=== PATIENT | female | born 1985 | race Caucasian/White ===

== ENCOUNTER 2022-05-27 21:47 | Emergency (ER) | payer OTHER, SELFPAY ==
--- NOTE | ~2022-05-27 | XR_ITS ---
EXAMINATION: XR chest 2V DATE: 05/27/2022 22:07 INDICATION: Chest pain slightly to the left of midline TECHNIQUE: PA and lateral views of the chest were obtained. COMPARISON: Chest radiograph dated 09/14/2021 FINDINGS: The lungs are clear with no focal airspace opacities, pulmonary edema, pleural effusion or pneumothor ax. The cardiomediastinal silhouette is normal. Mild midthoracic spondylosis with mild anterior wedgi ng of a couple mid thoracic vertebral bodies. IMPRESSION: 1. No acute cardiopulmonary disease. Reviewed, dictated and finalized at location A. TESTER
--- NOTE | 2022-05-27 21:52 | ECG_ITS ---
Measurements Intervals [place] Rate: 61 P: 58 MN: 129 QRS: 55 QRSD: 79 T: 32 QT: 391 QTc: 396 Interpretive Statements SINUS RHYTHM WITH SINUS ARRHYTHMIA POSSIBLE LEFT ATRIAL ENLARGEMENT INCOMPLETE RIGHT BUNDLE BRANCH BLOCK BASELINE ARTIFACT- II, III BORDERLINE ECG NO PREVIOUS ECG AVAILABLE FOR COMPARISON Electronically Signed On 05-28-2022 16:50:20 QUALITY REP by Jose Issa D.O.
[2022-05-27 21:53] VITALS: BP 143/89; PULSE 60; PULSE 69; RESP 13; RESP 21; O2SAT 100; O2SAT 98
[2022-05-27 21:54] VITALS: PULSE 68; RESP 15; O2SAT 100
[2022-05-27] MEDS: ASPIRIN 81 MG CHEWABLE TABLET 324 MG PO (22:18)
[2022-05-27 22:19] LABS: Basophils Absolute Auto 0.1 K/mm3 (0.0-0.1); Basophils Percent Auto 0.5 % (0.2-1.2); Eosinophils Absolute Auto 0.1 K/mm3 (0-0.3); Eosinophils Percent Auto 0.8 % (0-4.4); Hematocrit 40.4 % (37.0-47.0); Hemoglobin 13.2 g/dL (12.0-15.0); Immature Granulocyte Absolute 0.04 K/mm3 (0.00-0.031); Immature Granulocyte Percent A 0.4 % (0-0.5); Lymphocytes Absolute Auto 2.54 K/mm3 (0.9-3.2); Lymphocytes Percent Auto 22.9 % (18.3-44.2); Mean Corpuscular HGB Conc 32.7 g/dl (32-36); Mean Corpuscular Hemoglobin 28.9 pg (26-34); Mean Corpuscular Volume 88.6 fl (80-100); Mean Platelet Volume 9.6 fl (7.4-10.4); Monocytes Absolute Auto 1.1 K/mm3 (0.1-0.6); Monocytes Percent Auto 9.7 % (2.6-8.5); Neutrophils Absolute Auto 7.3 K/mm3 (1.3-6.7); Neutrophils Percent Auto 65.7 % (45.5-73.1); Platelet Count Result 273 k/mm3 (150-375); Red Blood Count 4.56 M/mm3 (4.2-5.4); Red Cell Distribution Width 12.9 % (11.5-14.5); White Blood Count 11.1 K/mm3 (4.5-10.0)
[2022-05-27 22:29] LABS: Alanine Aminotransferase 30 U/L (6-35); Albumin Level 4.6 g/dL (3.5-5.1); Alkaline Phosphatase 69 U/L (38-126); Anion Gap 7 mmol/L (8-16); Aspartate Amino Transferase 41 U/L (14-36); Bilirubin,Total 0.3 mg/dL (0.2-1.3); Blood Urea Nitrogen 19 mg/dL (7-17); Calcium 9.1 mg/dL (8.4-10.2); Carbon Dioxide 28 mmol/L (22-30); Chloride 101 mmol/L (98-107); Estimated CRCL calculation 74 ml/min; Estimated Glomerular Filt Rate > 60; Glucose 110 mg/dL (65-110); Lipase 72 U/L (23-300); Potassium 3.8 mmol/L (3.4-5.0); Sodium 136 mmol/L (137-145)
[2022-05-27 22:31] VITALS: BP 117/73; PULSE 71; RESP 18; O2SAT 100
[2022-05-27 22:31] LABS: Prothrombin Time 13.1 Seconds (11.1-14.7)
[2022-05-27 22:32] LABS: Partial Thromboplastin Time 27.1 SECONDS (22.3-36.8)
[2022-05-27 22:39] LABS: Troponin I 0.013 ng/mL (0.000-0.034)
[2022-05-27 22:40] LABS: Appearance Urine Clear (Clear); Bilirubin Urine Negative (Negative); Blood Urine Negative (Negative); Color Urine Yellow (Yellow); Glucose Urine UA Negative (Negative); Ketones Urine Negative (Negative); Leukocyte Esterase Ur Negative LEU/UL (Negative); Nitrate Urine Negative (Negative); Protein Urine Negative (Negative); Urobilinogen Urine 0.2 mg/dL (<2.0); pH Urine 6.5 (5.0-9.0)
[2022-05-27 22:41] LABS: Add Urine Microscopic? NO
[2022-05-27 22:42] LABS: D Dimer 0.41 ug/mL (<0.48)
--- NOTE | 2022-05-27 22:44 | ED.GENADULT ---
HPI - General Adult General Chief complaint: Chest Pain Stated complaint: chest pain, midsternal Time Seen by Provider: 05/27/22 22:01 History of Present Illness HPI narrative: Patient is a 36-year-old female that presents emerged department with chief complaint of chest pain. The patient reports that throughout the week she has been having episodes of sharp type pain that last for a few seconds and a few episodes of stabbing patient states that then goes away and then comes back little while later. Patient denies diaphoresis denies radiation to the arm denies fever denies cough. Patient reports no prior history of connective tissue disorder reports no prior history of clotting disorder. Related Data Allergies Allergy/AdvReac Type Severity Reaction Status Date / Time No Known Allergies Allergy Verified 05/27/22 22:17 Review of Systems Review of Systems: A 10 system review of systems was completed on the patient and is negative except for what is stated in the HPI. Nursing and ancillary documentation was reviewed. Exam Narrative: GENERAL: Well-appearing, well-nourished, and in no acute distress. HEAD: Normocephalic, atraumatic. EYES: PERRLA and EOMI. ENT: Nares clear, no rhinorrhea or epistaxis. Mucous membranes moist. NECK: Supple. CHEST: Clear to auscultation. No respiratory distress. HEART: Regular rate and rhythm. No murmur heard. Normal peripheral pulses. ABDOMEN: Soft, nontender, nondistended, normal active bowel sounds. EXTREMITIES: Normal range of motion. No edema. SKIN: Warm, dry, no rash. NEURO: No focal deficits. Alert and oriented x3. PSYCH: Normal mood and affect. Course Vital Signs Vital signs: Vital Signs Pulse Rate 60 05/27/22 21:53 Respiratory Rate 21 H 05/27/22 21:53 Blood Pressure 143/89 H 05/27/22 21:53 Pulse Oximetry 100 05/27/22 21:53 Pulse Rate 60 05/27/22 21:53 Respiratory Rate 21 H 05/27/22 21:53 Blood Pressure 143/89 H 05/27/22 21:53 Pulse Oximetry 100 05/27/22 21:53 Medical Decision Making Vital Signs Vital Signs: Vital Signs Pulse Rate 60 05/27/22 21:53 Respiratory Rate 21 H 05/27/22 21:53 Blood Pressure 143/89 H 05/27/22 21:53 Pulse Oximetry 100 11/19/22 21:53 Pulse Rate 60 05/27/22 21:53 Respiratory Rate 21 H 05/27/22 21:53 Blood Pressure 143/89 H 05/27/22 21:53 Pulse Oximetry 100 05/27/22 21:53 Lab Data Result diagrams: 05/27/22 22:12 05/27/22 22:12 Labs: Lab Results 05/27/22 05/27/22 05/27/22 Range/Units 22:12 22:12 22:12 WBC 11.1 H (4.5-10.0) K/mm3 RBC 4.56 (4.2-5.4) M/mm3 Hgb 13.2 (12.0-15.0) g/dL Hct 40.4 (37.0-47.0) % MCV 88.6 (80-100) fl MCH 28.9 (26-34) pg MCHC 32.7 (32-36) g/dl RDW 12.9 (11.5-14.5) % Plt Count 273 (150-375) k/mm3 MPV 9.6 (7.4-10.4) fl Immature Gran % (Auto) 0.4 (0-0.5) % Neut % (Auto) 65.7 (45.5-73.1) % Lymph % (Auto) 22.9 (18.3-44.2) % [place] % (Auto) 9.7 H (2.6-8.5) % Eos % (Auto) 0.8 (0-4.4) % Baso % (Auto) 0.5 (0.2-1.2) % Lymph # (Auto) 2.54 (0.9-3.2) K/mm3 [place] # (Auto) 1.1 H (0.1-0.6) K/mm3 Eos # (Auto) 0.1 (0-0.3) K/mm3 Baso # (Auto) 0.1 (0.0-0.1) K/mm3 Abs Immat Gran (auto) 0.04 H (0.00-0.031) K/mm3 Absolute Neuts (auto) 7.3 H (1.3-6.7) K/mm3 Absolute Nucleated RBC 0.0 (0.0-0.012) K/mm3 Nucleated RBC % 0.0 (0.0-0.2) % PT 13.1 (11.1-14.7) Seconds INR 1.0 APTT 27.1 (22.3-36.8) SECONDS D-Dimer 0.41 (<0.48) ug/mL Sodium 136 L (137-145) mmol/L Potassium 3.8 (3.4-5.0) mmol/L Chloride 101 (98-107) mmol/L Carbon Dioxide 28 (22-30) mmol/L Anion Gap 7 L (8-16) mmol/L BUN 19 H (7-17) mg/dL Creatinine 0.70 (0.7-1.0) mg/dL Estim Creat Clear Calc 74 ml/min Estimated GFR > 60 (59 - ) Glucose 110 (65-110) mg/dL Calcium 9.1 (8.4-10.2) mg/dL Total Bilirub
[2022-05-27 23:16] VITALS: BP 106/62; PULSE 61; RESP 19; O2SAT 98
[2022-05-28 00:30] VITALS: BP 108/71; PULSE 59; RESP 19; O2SAT 98
[2022-05-28 00:45] VITALS: BP 126/87; PULSE 57; RESP 15; O2SAT 97
[2022-05-28 00:49] LABS: Troponin I < 0.012 ng/mL (0.000-0.034)
[2022-05-28 01:05] VITALS: BP 114/78; PULSE 64; RESP 28; O2SAT 97
== END 2022-05-28 01:10 | disposition home or self-care (01) ==
PROVIDERS: Emergency Medicine; Emergency Provider Emergency Medicine
DX: R07.9 Chest pain, unspecified (principal); I45.10 Unspecified right bundle-branch block; R94.31 Abnormal electrocardiogram [ECG] [EKG]
CPT/HCPCS: 36415; 71046; 80053; 81003; 81025; 83690; 84484; 85025; 85380; 85610; 85730; 93005; 99284; A9270

== ENCOUNTER 2024-10-10 01:18 | Emergency (ER) | payer OTHER, SELFPAY ==
--- NOTE | ~2024-10-10 | CT_ITS ---
CT ANGIOGRAM HEAD History: Headache, subarachnoid hemorrhage. Technique: Axial noncontrast imaging of the brain was performed. Serial spiral axial images through t he head were then obtained during arterial phase IV injection of 100 cc of Omnipaque 350. 3-D postpro cessing and MIP images were then reconstructed on the remote workstation. Dose reduction technique wa s used on this scan by utilizing automated exposure control and iterative reconstruction technique. T dose-length product (DLP) was 1028.68 mGy-cm. Findings: Axial noncontrast imaging of brain is unremarkable. No acute infarct, intracranial hemorrha ge, or mass lesion seen. No mass effect or midline shift. Storm-white differentiation is intact. Ventr icles and subarachnoid spaces are unremarkable. Paranasal sinuses and mastoid air cells are clear. Ca lvarium intact. Distal vertebral arteries, basilar artery, and posterior cervical arteries are patent. Distal interna l carotid arteries, middle cerebral arteries, and anterior cerebral arteries are patent. No large ves franki occlusion or stenosis. No aneurysm seen. Impression: Unremarkable exam. Reviewed, dictated and finalized at location . Impression: Unremarkable exam.
[2024-10-10 01:25] VITALS: BP 139/100; PULSE 70; RESP 15; O2SAT 100
--- NOTE | 2024-10-10 01:32 | ED.HA ---
HPI - Headache General Chief Complaint: Headache Stated Complaint: SHEIKH, aura Time Seen by Provider: 10/10/24 01:24 History of Present Illness HPI Narrative: 39-year-old female otherwise healthy presenting to the emergency room with sudden-onset headache since last morning at 9:00 a.m.. Not doing anything particular exertional strenuous. Headache was sudden onset and peaked in intensity. Has been persistent since yesterday morning. Not responsive to Tylenol. States that the headache is positional and worse when she lies down flat or with closing her eyes. She describes a aura where she has a visual spot light in both arise but no visual changes otherwise. Endorses vomiting x1 without any preceding nausea. No chest pain, shortness a breath, fever, chills, neck pain or stiffness. No abdominal pain, no chance of . Has never had a headache like this or any history of migraines. Related Data Allergies Allergy/AdvReac Type Severity Reaction Status Date / Time No Known Allergies Allergy Verified 10/10/24 01:20 Review of Systems Review of Systems: As reviewed above in HPI Exam Narrative: GENERAL: Uncomfortable appearing but not any distress. HEAD: [Normocephalic, atraumatic.] EYES: [PERRLA and EOMI.] ENT: Nares clear, no rhinorrhea or epistaxis. Mucous membranes moist. NECK: Supple. CHEST: [Clear to auscultation. No respiratory distress.] HEART: [Regular rate and rhythm]. No murmur heard. [Normal peripheral pulses.] ABDOMEN: [Soft, nondistended], [nontender], [No rigidity or guarding] EXTREMITIES: Normal range of motion. [No edema.] SKIN: Warm, dry, no rash. NEURO: [No focal deficits]. Alert and oriented [x3.] PSYCH: [Normal mood and affect.] Course Vital Signs Vital signs: Vital Signs Pulse Rate 70 10/10/24 01:25 Respiratory Rate 15 10/10/24 01:25 Blood Pressure 139/100 H 10/10/24 01:25 Pulse Oximetry 100 10/10/24 01:25 Oxygen Delivery Room Air 10/10/24 01:25 Pulse Rate 70 10/10/24 01:25 Respiratory Rate 15 10/10/24 01:25 Blood Pressure 139/100 H 10/10/24 01:25 Pulse Oximetry 100 10/10/24 01:25 Oxygen Delivery Room Air 10/10/24 01:25 MDM - Headache MDM Narrative Medical decision making narrative: 39-year-old female presenting to the emergency depart with a chief complaint of sudden-onset headache yesterday morning, peak in intensity quickly, unremitting despite Tylenol. Associated vomiting without nausea proceeding. Associated visual aura. No loss of consciousness or trauma. No neck pain or stiffness. Unremarkable neurological assessment at bedside with equal strength and sensation and no neurological deficits. Awake alert oriented. Her vital signs are reassuring without any significant hypertension, tachycardia, fever or hypoxia. Given patient's clinical exam suspicion for significant intracranial pathology is low although the description of her symptoms raises suspicion for possibility of subarachnoid hemorrhage. Migraine headache, tension headache, migraine with or also in the differential as higher likelihood. Blood was obtained, CBC, CMP, test and a CT of the head was ordered in addition to a CT angio of the brain given the timeline of events for increased sensitivity for subarachnoid hemorrhage. She was treated with Compazine, diphenhydramine, fluid bolus and Decadron. Patient placed on monitor and re-evaluated. Patient CT head and CT angiography of the head neck were unremarkable. No acute intracranial abnormality. No incidental aneurysms, no occlusion dissection or aneurysm. No intracranial hemorrhage. Patient re-evaluated with improvement her migraine headache. Patient is safe for discharge. Her workup was unremarkable with normal laboratory studies. Negative test. Negative CT scans. Medical Records Attestation: I reviewed the patient's medical records. Lab Data Attestation: I reviewed the patient's lab results. 10/10/24 01:38 10/10/24 01:38 Labs: Lab Results 10/10/24 Range/Units 01:38 WBC 7.0 (4.5-10.0) K/mm3 RBC 5.05 (4.2-5.4) M/mm3 Hgb 14.6 (12.0-15.0) g/dL Hct 45.0 (37.0-47.0) % MCV 89.1 (80-100) fl MCH 28.9 (26-34) pg MCHC 32.4 (32-36) g/dl RDW 12.0 (11.5-14.5) % Plt Count 306 (150-375) k/mm3 MPV 9.9 (7.4-10.4) fl Immature Gran % (Auto) 0.3 (0-0.5) % Neut % (Auto) 43.1 L (45.5-73.1) % Lymph % (Auto) 40.7 (18.3-44.2) % [place] % (Auto) 10.8 H (2.6-8.5) % Eos % (Auto) 4.4 (0-4.4) % Baso % (Auto) 0.7 (0.2-1.2) % Lymph # (Auto) 2.84 (0.9-3.2) K/mm3 [place] # (Auto) 0.8 H (0.1-0.6) K/mm3 Eos # (Auto) 0.3 (0-0.3) K/mm3 Baso # (Auto) 0.1 (0.0-0.1) K/mm3 Abs Immat Gran (auto) 0.02 (0.00-0.031) K/mm3 Absolute Neuts (auto) 3.0 (1.3-6.7) K/mm3 Absolute Nucleated RBC 0.000 (0.0-0.012) K/mm3 Nucleated RBC % 0.0 (0.0-0.2) % Sodium 140 (137-145) mmol/L Potassium 3.6 (3.4-5.0) mmol/L Chloride 102 (98-107) mmol/L Carbon Dioxide 25 (22-30) mmol/L Anion Gap 13 H (4-12) mmol/L BUN 18 H (7-17) mg/dL Creatinine 0.68 L (0.7-1.0) mg/dL Estim Creat Clear Calc 77 ml/min Estimated GFR > 60 (59 - ) Glucose 115 H (65-110) mg/dL Calcium 9.2 (8.4-10.2) mg/dL Total Bilirubin 0.4 (0.2-1.3) mg/dL AST 25 (14-36) U/L ALT 17 (6-35) U/L Alkaline Phosphatase 68 (38-126) U/L Total Protein 8.0 (6.3-8.2) g/dL Albumin 4.9 (3.5-5.1) g/dL Serum HCG, Qual Negative Imaging Data Attestation: I personally reviewed and interpreted this imaging study as follows: My impression: No acute intracranial hemorrhage. CTA without any occlusion dissection or aneurysm. Discharge Plan Discharge Clinical Impression: Migraine with aura Patient Disposition: Home, Self-Care Condition: Stable Instructions: Antibiotic Form, Migraine Headache (ED), Acute Headache (ED) Additional Instructions: Your laboratory studies are all within normal limits. Your CT scan shows no acute intracranial findings. No aneurysm, dissection, blood clot or any bleeding. Follow-up with your primary care provider as needed. Return with any new or emergent concerns. Patient Language: Ukrainian Follow-up/Referrals: PHYSICIAN NOT ON STAFF,NONSTAFF [Primary Care Provider] - Time of Disposition: 04:04
[2024-10-10 01:44] LABS: Basophils Absolute Auto 0.1 K/mm3 (0.0-0.1); Basophils Percent Auto 0.7 % (0.2-1.2); Eosinophils Absolute Auto 0.3 K/mm3 (0-0.3); Eosinophils Percent Auto 4.4 % (0-4.4); Hemoglobin 14.6 g/dL (12.0-15.0); Immature Granulocyte Absolute 0.02 K/mm3 (0.00-0.031); Immature Granulocyte Percent A 0.3 % (0-0.5); Lymphocytes Absolute Auto 2.84 K/mm3 (0.9-3.2); Lymphocytes Percent Auto 40.7 % (18.3-44.2); Mean Corpuscular HGB Conc 32.4 g/dl (32-36); Mean Corpuscular Hemoglobin 28.9 pg (26-34); Mean Corpuscular Volume 89.1 fl (80-100); Mean Platelet Volume 9.9 fl (7.4-10.4); Monocytes Absolute Auto 0.8 K/mm3 (0.1-0.6); Monocytes Percent Auto 10.8 % (2.6-8.5); Neutrophils Percent Auto 43.1 % (45.5-73.1); Platelet Count Result 306 k/mm3 (150-375); Red Blood Count 5.05 M/mm3 (4.2-5.4)
[2024-10-10] MEDS: SODIUM CHLORIDE 0.9% IV 1,000 ML 999 ML IV CONT (01:46)
[2024-10-10] MEDS: diphenhydrAMINE HCl INJ 50 MG/ML VIAL 25 MG IV PUSH (01:48)
[2024-10-10] MEDS: dexAMETHasone SOD PHOS INJ 10 MG/ML 1 ML VIAL IV PUSH (01:48)
[2024-10-10] MEDS: PROCHLORPERAZINE EDISYLATE 10 MG/2 ML VIAL IV PUSH (01:48)
[2024-10-10 02:00] LABS: SPREG INTERNAL CONTROL Positive; Serum Qual hCG Negative
[2024-10-10 02:12] VITALS: BP 130/68; PULSE 81; RESP 14; O2SAT 100
[2024-10-10 02:18] LABS: Alanine Aminotransferase 17 U/L (6-35); Albumin Level 4.9 g/dL (3.5-5.1); Alkaline Phosphatase 68 U/L (38-126); Anion Gap 13 mmol/L (4-12); Aspartate Amino Transferase 25 U/L (14-36); Bilirubin,Total 0.4 mg/dL (0.2-1.3); Blood Urea Nitrogen 18 mg/dL (7-17); Calcium 9.2 mg/dL (8.4-10.2); Carbon Dioxide 25 mmol/L (22-30); Chloride 102 mmol/L (98-107); Estimated CRCL calculation 77 ml/min; Estimated Glomerular Filt Rate > 60; Glucose 115 mg/dL (65-110); Potassium 3.6 mmol/L (3.4-5.0); Sodium 140 mmol/L (137-145)
[2024-10-10 04:07] VITALS: BP 130/71; PULSE 76; RESP 14; O2SAT 100
== END 2024-10-10 04:14 | disposition home or self-care (01) ==
PROVIDERS: Emergency Provider Student in an Organized Health Care Education/Training Program
DX: G43.109 Migraine with aura, not intractable, without status migrainosus (principal)
CPT/HCPCS: 36415; 70496; 80053; 84703; 85025; 96361; 96374; 96375; 99284; J0780; J1100; J1200; J7030; Q9967